=== PATIENT | male | born 1950 | race Caucasian/White ===

== ENCOUNTER 2017-11-28 12:57 | Emergency (ER) | payer OTHER ==
[~2017-11-28] VITALS: Ht 172.7 cm; Wt 80.0 kg
[2017-11-28 13:04] VITALS: BP 190/90; PULSE 102; RESP 18; TEMP 97.2; O2SAT 99
[2017-11-28] MEDS ORDERED: METF1000 PO (13:55)
[2017-11-28] MEDS ORDERED: LISI-515 PO (13:55)
[2017-11-28] MEDS ORDERED: XARE20TA PO (13:55)
[2017-11-28] MEDS ORDERED: SODIUM CHLOR 0.9% 1000 ML INJ 1,000 ML IV ONE ×2 (14:15)
[2017-11-28 14:26] LABS: AUTOMATED NEUTROPHIL # 4.6 TH/MM3 (1.8-7.7); BASOPHIL # 0.1 TH/MM3 (0-0.2); BASOPHIL % 1.5 % (0.0-2.0); EOSINOPHIL # 0.2 TH/MM3 (0-0.4); EOSINOPHIL % 2.9 % (0.0-4.0); HEMATOCRIT 42.6 % (39.0-51.0); HEMOGLOBIN 14.6 GM/DL (13.0-17.0); LYMPH % 26.1 % (9.0-44.0); LYMPHOCYTE # 2.1 TH/MM3 (1.0-4.8); MEAN CELL VOLUME 91.8 FL (80.0-100.0); MEAN CORPUSCULAR HEMOGLOBIN 31.5 PG (27.0-34.0); MEAN CORPUSCULAR HGB CONC 34.3 % (32.0-36.0); MEAN PLATELET VOLUME 7.6 FL (7.0-11.0); MONO % 12.5 % (0.0-8.0); PLATELET COUNT 245 TH/MM3 (150-450); RED BLOOD COUNT 4.64 MIL/MM3 (4.50-5.90); RED CELL DISTRIBUTION WIDTH 17.3 % (11.6-17.2)
[2017-11-28 14:35] LABS: INTERNATIONAL NORMALIZED RATIO 1.1 RATIO; PROTHROMBIN TIME - PATIENT 11.5 SEC (9.8-11.6)
--- NOTE | 2017-11-28 14:38 | PD ---
HPI Chief Complaint: Diabetic Time Seen by Provider: 13:50 Travel History International Travel<30 days: No Contact w/Intl Traveler<30days: No Traveled to known affect area: No History of Present Illness HPI Is a 67-year-old man who presents to the emergency department complaining of feeling his blood sugars been high. Been on metformin for years. He was on insulin many many years ago. He has been stable on 1000 mg twice daily. He recently moved down here and has been having trouble getting set up with a new physician. He has an appointment next week. He however has been having increased urination, dry mouth, tenderness, sweet taste, blurry vision. He also has a history of PE, is on Xarelto, as well as hypertension. He has not run out of any of his medications. He is worried he may have to go back on insulin. History Past Medical History Narrative Medical Diabetes Hypertension PE Tetanus Vaccination: > 5 Years Influenza Vaccination: No Past Surgical History Surgical History: No Previous Surgery Social History Alcohol Use: No Tobacco Use: No Allergies-Medications (Allergen,Severity, Reaction): Coded Allergies: No Known Allergies (Verified Allergy, Unknown, 11/28/17) Reported Meds & Prescriptions Reported Meds & Active Scripts Active Reported Lisinopril 20 Mg Tab 20 Mg PO DAILY Xarelto (Rivaroxaban) 20 Mg Tab 20 Mg PO DAILY Metformin (Metformin HCl) 1,000 Mg Tab 1,000 Mg PO BIDPC Review of Systems Except as stated in HPI: all other systems reviewed are Neg Physical Exam Narrative GENERAL: Well-appearing 67-year-old man, no acute distress. SKIN: Focused skin assessment warm/dry. Slightly decreased skin turgor. HEAD: Atraumatic. Normocephalic. EYES: Pupils equal and round. No scleral icterus. No injection or drainage. ENT: No nasal bleeding or discharge. Mucous membranes dry t. NECK: Trachea midline. No JVD. CARDIOVASCULAR: Regular rate and rhythm. No murmur appreciated. RESPIRATORY: No accessory muscle use. Clear to auscultation. Breath sounds equal bilaterally. GASTROINTESTINAL: Abdomen soft, non-tender, nondistended. Hepatic and splenic margins not palpable. MUSCULOSKELETAL: No obvious deformities. No clubbing. No cyanosis. No edema. NEUROLOGICAL: Awake and alert. No obvious cranial nerve deficits. Motor grossly within normal limits. Normal speech. PSYCHIATRIC: Appropriate mood and affect; insight and judgment normal. Data Data Last Documented VS Vital Signs Date Time Temp Pulse Resp B/P (MAP) Pulse Ox O2 Delivery O2 Flow Rate FiO2 11/28/17 13:04 97.2 102 18 190/90 (123) 99 Room Air Orders Orders Complete Blood Count With Diff (11/28/17 13:15) Blood Glucose (11/28/17 13:15) Comprehensive Metabolic Panel (11/28/17 13:15) Prothrombin Time / Inr (Pt) (11/28/17 13:15) Act Partial Throm Time (Ptt) (11/28/17 13:15) Sodium Chlor 0.9% 1000 Ml Inj (Ns 1000 M (11/28/17 14:15) Sodium Chlor 0.9% 1000 Ml Inj (Ns 1000 M (11/28/17 14:15) Urinalysis - C+S If Indicated (11/28/17 14:10) Labs Laboratory Tests Test 11/28/17 14:00 11/28/17 14:45 White Blood Count 8.0 TH/MM3 Red Blood Count 4.64 MIL/MM3 Hemoglobin 14.6 GM/DL Hematocrit 42.6 % Mean Corpuscular Volume 91.8 FL Mean Corpuscular Hemoglobin 31.5 PG Mean Corpuscular Hemoglobin Concent 34.3 % Red Cell Distribution Width 17.3 % Platelet Count 245 TH/MM3 Mean Platelet Volume 7.6 FL Neutrophils (%) (Auto) 57.0 % Lymphocytes (%) (Auto) 26.1 % Monocytes (%) (Auto) 12.5 % Eosinophils (%) (Auto) 2.9 % Basophils (%) (Auto) 1.5 % Neutrophils # (Auto) 4.6 TH/MM3 Lymphocytes # (Auto) 2.1 TH/MM3 Monocytes # (Auto) 1.0 TH/MM3 Eosinophils # (Auto) 0.2 TH/MM3 Basophils # (Auto) 0.1 TH/MM3 CBC Comment DIFF FINAL Differential Comment Prothrombin Time 11.5 SEC Prothromb Time International Ratio 1.1 RATIO Activated Partial Thromboplast Time 25.9 SEC Blood Urea Nitrogen 14 MG/DL Creatinine 1.08 MG/DL Random Glucose 157 MG/DL Total Protein 8.6 GM/DL Albumin 4.3 GM/DL Calcium Level 10.0 MG/DL Alkaline Phosphatase 63 U/L Aspartate Amino Transf (AST/SGOT) 120 U/L Alanine Aminotransferase (ALT/SGPT) 105 U/L Total Bilirubin 0.7 MG/DL Sodium Level 137 MEQ/L Potassium Level 3.9 MEQ/L Chloride Level 102 MEQ/L Carbon Dioxide Level 24.0 MEQ/L Anion Gap 11 MEQ/L Estimat Glomerular Filtration Rate 68 ML/MIN Urine Color YELLOW Urine Turbidity CLEAR Urine pH 5.5 Urine Specific [place] 1.012 Urine Protein NEG mg/dL Urine Glucose (UA) NEG mg/dL Urine Ketones TRACE mg/dL Urine Occult Blood NEG Urine Nitrite NEG Urine Bilirubin NEG Urine Urobilinogen LESS THAN 2.0 MG/DL Urine Leukocyte Esterase NEG Urine WBC 2 /hpf Urine Mucus FEW /lpf Microscopic Urinalysis Comment CULT NOT INDICATED MDM Medical Decision Making Medical Screen Exam Complete: Yes Emergency Medical Condition: Yes Interpretation(s) LABS: CBC is unremarkable. CBC is unremarkable CMP is remarkable for mildly elevated AST and ALT Glucose 157 Coags are unremarkable. UA unremarkable. Differential Diagnosis Hyperglycemia, dehydration, anxiety, UTI, weakness, other Narrative Course Medical decision making INITIAL: This 67-year-old man presents to the emergency department complaining of concern for elevated blood sugar. Multiple symptoms. Will check labs, IV fluid rehydration, check UA, likely discharge. Labs are remarkable for mildly elevated glucose, elevated AST and ALT, possibly from fatty liver, no old for comparison. Needs outpatient follow-up. Diagnosis Primary Impression: Diabetes Additional Impression: Elevated liver enzymes Additional Instructions: Continue current medications. Continue follow-up with her primary doctor as planned. Return to the emergency department for any new or worsening symptoms. Med/Other Pt SpecificInfo: No Change to Meds Disposition: 01 DISCHARGE HOME Condition: Stable Norbert Strong MD Nov 28, 2017 14:38
[2017-11-28 14:44] LABS: ALBUMIN 4.3 GM/DL (3.4-5.0); AST (GOT) 120 U/L (15-37); BLOOD UREA NITROGEN 14 MG/DL (7-18); CHLORIDE 102 MEQ/L (98-107); CREATININE 1.08 MG/DL (0.60-1.30); GLOMERULAR FILTRATION RATE 68 ML/MIN (>89); GLUCOSE,RANDOM 157 MG/DL (74-106); SODIUM (NA) 137 MEQ/L (136-145)
[2017-11-28 14:48] LABS: ALKALINE PHOSPHATASE 63 U/L (45-117); ALT (GPT) 105 U/L (12-78); TOTAL BILIRUBIN ADULT 0.7 MG/DL (0.2-1.0); TOTAL PROTEIN 8.6 GM/DL (6.4-8.2)
[2017-11-28 15:19] LABS: BILIRUBIN, URINE NEG (NEG); BLOOD, URINE NEG (NEG); GLUCOSE,URINE NEG (NEG); KETONE, URINE TRACE mg/dL (NEG); MUCUS URINE FEW /lpf (OCC); NITRITE,URINE NEG (NEG); PH, URINE 5.5 (5.0-8.5); URINE COLOR YELLOW (YELLW/STRAW); URINE LEUKOCYTE ESTERASE NEG (NEG)
[2017-11-28] MEDS ORDERED: AMLO5TAB2 PO (15:42)
[2017-11-28] MEDS ORDERED: amLODIPine BESYLATE 5 MG TAB PO ONE (15:45)
== END 2017-11-28 16:27 | disposition home or self-care (01) ==
LOC: NEPE 12:57
DX: E11.9 Type 2 diabetes mellitus without complications (principal); R79.89 Other specified abnormal findings of blood chemistry; I10 Essential (primary) hypertension; Z86.711 Personal history of pulmonary embolism; Z79.01 Long term (current) use of anticoagulants; Z79.84 Long term (current) use of oral hypoglycemic drugs; Z79.899 Other long term (current) drug therapy
CPT/HCPCS: 80053; 81001; 85025; 85610; 85730; 96360; 96361; 99284; J7030